=== PATIENT | female | born 1930 | race Caucasian/White ===

== ENCOUNTER 2017-06-12 05:47 | Inpatient (IN) | payer OTHER ==
[2017-06-08 12:58] VITALS: BMI 32.3
--- NOTE | 2017-06-08 14:15 | HP ---
Satellite [facility] - Chief Complaint Chief Complaint: left hip pain - Past Medical History Allergies/Adverse Reactions: Allergies Allergy/AdvReac Type Severity Reaction Status Date / Time azithromycin Allergy Severe Rash Verified 06/08/17 13:49 ciprofloxacin Allergy Severe Rash Verified 06/08/17 13:49 erythromycin base Allergy Severe Rash Verified 06/08/17 13:50 nitrofurantoin Allergy Severe Rash Verified 06/08/17 13:57 tetracycline Allergy Severe Rash Verified 06/08/17 13:57 Satellite Physical Exam - Physical Examination General Appearance: Well Nourished, Well Developed, Alert & Oriented x3 ENT: Clear Lung: Normal air movement Heart: Regular rate & rhythm Extremities: Other (left hip- + ttp, decr rom, nvi xrays show grade 4 djd) Neurological: Intact, Alert, Oriented Satellite Impression/Plan - Impression/Plan Impression: left hip djd Operative Procedure: left dain thr Date to be Performed: 06/12/17
[2017-06-12] MEDS ORDERED: VANCOMYCIN 1,000 MG VIAL (RESTRICTED TO ID ONLY) ONE (06:38)
[2017-06-12] MEDS ORDERED: ceFAZolin SODIUM 1 GM VIAL ONE ×2 (06:38→08:39)
[2017-06-12] MEDS ORDERED: ROPIVACAINE HCL 0.5% 30ML VIAL ONE (06:43)
[2017-06-12] MEDS ORDERED: GABAPENTIN 300 MG CAPSULE (FP) PO ONE (06:43)
[2017-06-12] MEDS ORDERED: DEXAMETHASONE SOD PHOSPHATE/PF 10 MG/ML SDV ONE (06:43)
[2017-06-12] MEDS ORDERED: TRANEXAMIC ACID 1000 MG/10 ML VIAL IVPUSH ONE (06:43)
[2017-06-12] MEDS ORDERED: CELECOXIB 200 MG CAPSULE PO ONE (06:43)
[2017-06-12] MEDS ORDERED: MIDAZOLAM HCL 2 MG/2 ML SINGLE DOSE VIAL ONE (06:43)
[2017-06-12] MEDS ORDERED: CEFAZOLIN 1 GM/D5W 1 GRAM/50 ML BAG IVPB ONE (06:43)
[2017-06-12] MEDS ORDERED: BUPIVACAINE HCL/PF 0.5% (5MG/ML) 10 ML VIAL ONE (07:59)
[2017-06-12] MEDS ORDERED: DEXAMETHASONE SOD PHOSPHATE 4 MG/1 ML VIAL ONE (08:39)
[2017-06-12] MEDS ORDERED: ONDANSETRON 4 MG/2 ML VIAL ONE (08:39)
[2017-06-12] MEDS ORDERED: TRANEXAMIC ACID 1000 MG/10 ML VIAL ONE ×2 (08:39→09:28)
[2017-06-12] MEDS ORDERED: PROPOFOL 20 ML ONE (08:40)
[2017-06-12] MEDS ORDERED: SODIUM CHLORIDE 0.9% P/F 10 ML VIAL IJ ONE (08:51)
[2017-06-12] MEDS ORDERED: PHENYLEPHRINE HCL 10 MG/1 ML SINGLE DOSE VIAL ONE (08:51)
[2017-06-12] MEDS ORDERED: LORazepam 0.5 MG TABLET PO PRN ×2 (09:39→14:37)
[2017-06-12] MEDS ORDERED: MAGNESIUM HYDROX 2400MG/30ML ORAL SUSPENSION 30 ML CUP PO PRN (09:41)
[2017-06-12] MEDS ORDERED: MAG HYDROX/AL HYDROX/SIMETH 30 ML UNIT-DOSE CUP PO PRN (09:41)
--- NOTE | 2017-06-12 09:43 | OP ---
Operative Note - Note: Operative Date: 06/12/17 (beata) Pre-Operative Diagnosis: left hip djd Operation: left dain thr Post-Operative Diagnosis: Same as Pre-op Surgeon: Harley Camacho Supervisor Mold Yard: Chon Cloud Anesthesiologist/BOAT HOIST OPERATOR: Fer Figueroa Anesthesia: Spinal, Local Specimens Removed: femoral head Estimated Blood Loss (mls): 100 Operative Report Dictated: Yes
[2017-06-12] MEDS ORDERED: LACTATED RINGERS SOLUTION 1,000 ML IV SCH (09:45)
[2017-06-12] MEDS ORDERED: [UNRECOGNIZED DRUG - OTHER] PO SCH (10:00)
[2017-06-12] MEDS ORDERED: FLUCONAZOLE 100 MG TABLET (UD) PO SCH (10:00)
[2017-06-12] MEDS ORDERED: PATIENT'S OWN MEDICATION (NON-FORMULARY) (Simvastatin [Simvastatin] 10 MG) PO SCH (10:00)
[2017-06-12] MEDS ORDERED: TRIAMTERENE HCTZ PO SCH (10:00)
[2017-06-12] MEDS ORDERED: ONDANSETRON 4 MG/2 ML VIAL IVPUSH PRN (10:03)
[2017-06-12] MEDS ORDERED: PROMETHAZINE HCL 25 MG/1 ML VIAL IVPUSH PRN (10:03)
[2017-06-12] MEDS: PANTOPRAZOLE 40 MG TABLET (FP) PO SCH (14:44)
[2017-06-12] MEDS: MULTIVITAMINS (DAILY MVI) TABLET (FP) PO SCH (14:44)
[2017-06-12] MEDS: SENNOSIDES/DOCUSATE COMBO (SENNA PLUS) TABLET (UD) PO SCH ×2 (14:44→22:02)
[2017-06-12] MEDS: ACETAMINOPHEN 325 MG TABLET (FP) PO SCH ×3 (14:50→23:48)
[2017-06-12] MEDS: CEFAZOLIN 1 GM/D5W 1 GRAM/50 ML BAG IVPB SCH ×2 (16:00→23:49)
[2017-06-12] MEDS: oxyCODONE HCL 5 MG TABLET PO PRN ×2 (19:10→22:03)
[2017-06-12] MEDS: oxyCODONE HCL 10 MG SUSTAINED ACTING TABLET PO SCH (22:02)
[2017-06-13] MEDS: oxyCODONE HCL 5 MG TABLET PO PRN ×4 (02:52→21:34)
[2017-06-13] MEDS: LEVOTHYROXINE NA 125 MCG TABLET (FP) PO SCH (06:57)
[2017-06-13] MEDS: ACETAMINOPHEN 325 MG TABLET (FP) PO SCH ×3 (06:57→17:40)
--- NOTE | 2017-06-13 07:14 | SPEC ---
DATE OF OPERATION: 06/12/2017 PREOPERATIVE DIAGNOSIS: Degenerative joint disease left hip. POSTOPERATIVE DIAGNOSIS: Degenerative joint disease left hip. PROCEDURE PERFORMED: Left total hip replacement with robotic-assisted navigation (MAKOplasty). SURGICAL ATTENDING: Harley Camacho MD ROD POINTER: CARLOS King ANESTHESIA: Regional and spinal. CLOSURE: A Argelia Hip System with a 50 titanium hemispherical press-fit cup, a No. 7 Accolade II femoral stem, and a MDM head +0. No. 1 Vicryl for fascia, 0 and 2-0 subcutaneous, 3-0 V-Loc for skin, 4-0 undyed Vicryl for pin sites. ESTIMATED BLOOD LOSS: Less than 100 mL. COMPLICATIONS: None. CONDITION: To the recovery room in stable condition. DESCRIPTION OF PROCEDURE: The patient was taken to the operating room on June 12, 2017. General and regional anesthesia was administered by the anesthesiologist. IV Kefzol and TXA were administered prophylactically prior to the case. The patient was placed in the lateral decubitus position will all prominences well-padded. The left hip area was prepped and draped in the usual sterile fashion. Using 3 small stab incisions over the iliac crest, 3 threaded pins were drilled in power fashion through the 2 tables of the crest. These pins were fastened and the navigation array for the Ashvin navigation system. Next, a 12 to 15-cm curved longitudinal incision over the posterolateral aspect of the greater trochanter was incised. Hemostasis was achieved with Bovie cautery. Sharp dissection was carried down to level of the fascia. The fascia was opened the entire length of the incision, spreading the fibers of the gluteus josie in the direction of origin. A Charnley retractor was placed in this layer. Care was taken not to impale the sciatic nerve. The short external rotators were detached off the insertion of the greater trochanter and peeled off the capsule. A posterior capsulotomy was then performed. A check point was malleted into the greater trochanter and a point on the inferior pole of the patella was obtained as well. These 2 points were used to assess the preoperative offset and limb lengths of the hip. The hip was then dislocated. The femoral neck was then osteotomized down to the appropriate level as directed by the navigation device. Anterior and posterior retractors were placed, exposing the acetabulum. A circumferential labral excision was performed. A check point was malleted into the acetabulum as well. Multiple sites inside the acetabulum and around the rim were utilized to register the acetabulum with the navigation device. An excellent registration of less than 0.5 mm was obtained. The hip was then reamed with the appropriate reamer down to the appropriate depth, with the appropriate orientation and version as assessed on our preoperative plan for this patient. The reamer was removed and the acetabulum was inspected to have good bleeding surfaces throughout. The real acetabular cup was then malleted down into place, with the holes in the appropriate position, until an excellent fixation was obtained. No screws were necessary. The navigation device ensured appropriate orientation and version, with the depth as predetermined. The appropriate liner was then clipped into place. Attention was directed to the femur. The proximal femur was prepared by use a box chisel, a canal finder and serial broaches until the broach achieved excellent rigidity in the proximal femur with the appropriate version being applied. A calcar planer was used to smooth off the calcar flush with the trial components. A trial reduction with the appropriate head was done, and the hip was reduced. The hip was taken through a range of motion from full extension with external rotation to marked flexion, and was stable at 90 degrees of flexion. It was stable to marked abduction and internal rotation, with a positive hang test and negative telescoping. Limb lengths were ascertained visually as well as with the navigation device to be within the targeted range for this patient. The trial component was removed. The real component was then malleted into place. The head was cold welded to the trunnion, and the hip was reduced. Range of motion, stability and limb lengths were as described in the trial component. Then the hip was pulse antibiotic irrigated. Vancomycin powder was placed in the hip joint. The capsule was closed. The fascia was then closed as well using number 1 Vicryl interrupted suture, 0 and 2-0 subcutaneous, and 3-0 V-Loc for the skin. 4-0 undyed Vicryl was used to close the pin sites after the pins were removed. All check points were also removed. Sterile Aquacel dressing was applied. The patient was awakened from anesthesia and transferred into the supine position. Bilateral SCDs and an abduction pillow were placed. X-rays revealed excellent position of the components. The patient was transferred to the recovery room in stable condition, with no complications. Estimated blood loss was less than 100 mL. Jimmie [id number]
[2017-06-13 07:25] LABS: HEMATOCRIT 37.2 % (32.4-45.2); HEMOGLOBIN 12.8 GM/dl (10.7-15.3); MCH 31.8 pg (25.7-33.7); MCHC 34.3 g/dl (32.0-36.0); MEAN CELL VOLUME 92.6 fl (80-96); MEAN PLT VOLUME 8.6 fl (7.5-11.1); PLATELET COUNT 185 K/MM3 (134-434); RBC 4.01 M/mm3 (3.60-5.2); RDW 11.6 % (11.6-15.6); WHITE BLOOD COUNT 11.5 K/mm3 (4.0-10.8)
[2017-06-13] MEDS: ASPIRIN 325 MG TABLET PO SCH (09:33)
[2017-06-13] MEDS: SENNOSIDES/DOCUSATE COMBO (SENNA PLUS) TABLET (UD) PO SCH ×2 (09:34→21:34)
[2017-06-13] MEDS: PANTOPRAZOLE 40 MG TABLET (FP) PO SCH (09:34)
[2017-06-13] MEDS: MULTIVITAMINS (DAILY MVI) TABLET (FP) PO SCH (09:34)
[2017-06-13] MEDS: ATORVASTATIN CA 10 MG TABLET (FP) PO SCH (09:34)
[2017-06-13] MEDS: oxyCODONE HCL 10 MG SUSTAINED ACTING TABLET PO SCH ×2 (09:35→21:33)
[2017-06-13] MEDS: TRIAMTERENE AND HCTZ - 37.5 MG/25 MG CAPSULE PO SCH (12:22)
[2017-06-14] MEDS: ACETAMINOPHEN 325 MG TABLET (FP) PO SCH ×5 (03:23→23:16)
[2017-06-14] MEDS: oxyCODONE HCL 5 MG TABLET PO PRN ×3 (06:33→18:42)
[2017-06-14] MEDS: LEVOTHYROXINE NA 125 MCG TABLET (FP) PO SCH (06:33)
[2017-06-14 08:58] LABS: HEMATOCRIT 35.5 % (32.4-45.2); HEMOGLOBIN 12.3 GM/dl (10.7-15.3); MCH 31.9 pg (25.7-33.7); MCHC 34.5 g/dl (32.0-36.0); MEAN CELL VOLUME 92.5 fl (80-96); MEAN PLT VOLUME 9.4 fl (7.5-11.1); PLATELET COUNT 189 K/MM3 (134-434); RBC 3.84 M/mm3 (3.60-5.2); RDW 11.9 % (11.6-15.6); WHITE BLOOD COUNT 8.4 K/mm3 (4.0-10.8)
[2017-06-14] MEDS: TRIAMTERENE AND HCTZ - 37.5 MG/25 MG CAPSULE PO SCH (09:05)
[2017-06-14] MEDS: ATORVASTATIN CA 10 MG TABLET (FP) PO SCH (09:05)
[2017-06-14] MEDS: ASPIRIN 325 MG TABLET PO SCH (09:05)
[2017-06-14] MEDS: MULTIVITAMINS (DAILY MVI) TABLET (FP) PO SCH (09:06)
[2017-06-14] MEDS: SENNOSIDES/DOCUSATE COMBO (SENNA PLUS) TABLET (UD) PO SCH ×2 (09:06→21:23)
[2017-06-14] MEDS: oxyCODONE HCL 10 MG SUSTAINED ACTING TABLET PO SCH ×2 (09:06→21:22)
[2017-06-14] MEDS: PANTOPRAZOLE 40 MG TABLET (FP) PO SCH (09:06)
[2017-06-15 06:07] VITALS: BP 121/54; PULSE 74; TEMP 98.1
[2017-06-15] MEDS: LEVOTHYROXINE NA 125 MCG TABLET (FP) PO SCH (06:22)
[2017-06-15] MEDS: ACETAMINOPHEN 325 MG TABLET (FP) PO SCH (06:22)
[2017-06-15] MEDS: oxyCODONE HCL 5 MG TABLET PO PRN ×2 (06:23→09:35)
--- NOTE | 2017-06-15 08:13 | PN ---
Progress Note (short form) - Note Progress Note: Ortho Pt seen and examined s/p left dain thr pod #3 Selected Entries 06/15/17 06:00 Temperature 98.1 F Pulse Rate 74 Respiratory 18 Rate Blood Pressure 121/54 Laboratory Tests 06/14/17 07:00 WBC 8.4 Hgb 12.3 Hct 35.5 Plt Count 189 dressing c/d/i, calf soft, nt nvi a/p PT hip precautions dvt ppx pain control d/c to snf today f/u in the office in 7-10 days
[2017-06-15] MEDS: ASPIRIN 325 MG TABLET PO SCH (08:30)
[2017-06-15] MEDS ORDERED: PT OWN MED DRAWER 7, Y5N ONE (09:20)
[2017-06-15] MEDS: oxyCODONE HCL 10 MG SUSTAINED ACTING TABLET PO SCH (09:35)
[2017-06-15] MEDS: MULTIVITAMINS (DAILY MVI) TABLET (FP) PO SCH (09:36)
[2017-06-15] MEDS: ATORVASTATIN CA 10 MG TABLET (FP) PO SCH (09:36)
[2017-06-15] MEDS: TRIAMTERENE AND HCTZ - 37.5 MG/25 MG CAPSULE PO SCH (09:36)
[2017-06-15] MEDS: PANTOPRAZOLE 40 MG TABLET (FP) PO SCH (09:36)
[2017-06-15] MEDS: SENNOSIDES/DOCUSATE COMBO (SENNA PLUS) TABLET (UD) PO SCH (09:37)
--- NOTE | 2017-06-17 16:08 | PATH ---
Surgical Pathology Report Patient Name: JAIRO JIMENEZ Med. Rec. #: [id number] /Age/Gender: 1930 (Age: 86) / F Account: [id number] Location: [facility] MED-SURG Taken: 06/12/2017 Received: 06/12/2017 Reported: 06/17/2017 Physicians: Harley Camacho M.D. Specimen(s) Received LEFT FEMORAL HEAD Clinical History Osteoarthritis Final Diagnosis FEMORAL HEAD, LEFT, TOTAL HIP PLACEMENT: DEGENERATIVE JOINT DISEASE. Electronically Signed Evie Lester M.D. Gross Description Received in formalin, labeled "left femoral head," is a 4.2 x 4.2 x 3.6 cm. femoral head with a 1.0 cm in length portion of femoral neck attached. The margin of resection is smooth. There is a 4 cm in greatest dimension area of eburnation present. The remaining articular surface is baldwin-yellow and diffusely granular. The underlying trabecular bone is yellow and hard. A videotape sales representative section is submitted in one cassette, following decalcification. [facility]
== END 2017-06-15 13:13 | DRG 470 ==
LOC: FM/S 05:47
PROVIDERS: ADMIT Orthopaedic Surgery; ATTEND Orthopaedic Surgery
PROC: 8E0Y0CZ Robotic Assisted Procedure of Lower Extremity, Open Approach (ICD-10-PCS; 2017-06-12)
PROC: 0SRB0JZ Replacement of Left Hip Joint with Synthetic Substitute, Open Approach (ICD-10-PCS; principal; 2017-06-12 08:39)
DX: M16.12 Unilateral primary osteoarthritis, left hip (principal)
CPT/HCPCS: 36415; 73523-TC-FY; 85027; 88304-TC; 88311-TC; 97116-GP; 97162-GP